=== PATIENT | male | born 1990 | race Caucasian/White ===

== ENCOUNTER 2019-01-27 04:39 | Emergency (ER) | payer BC ==
[2019-01-27] MEDS ORDERED: Al Hydrox/Mg Hydrox/Simet LIQ* 30 ML UDC PO ONE (05:05)
[2019-01-27] MEDS ORDERED: Lidocaine 2% VISCOUS* 15 ML UDC PO ONE (05:05)
--- NOTE | 2019-01-27 05:08 | ED ---
Complex/Multi-Sys Presentation - HPI Summary HPI Summary: Patient is a 28 y/o M presenting to ED with complaints of mid-lower sternal/ epigastric pain onsetting two days ago. He states that the pain onset two days ago in the evening after eating dinner. Patient states that the pain has progressively worsened. He characterizes the pain as sharp and notes that it has been constant but waxes and wanes in intensity. No radiation of pain is reported. He denies experiencing an abnormal taste in his mouth. No PMHx. FMHx of breast cancer in mother, no FMHx of cardiac disease. SOB, diaphoresis, and nausea are denied. On triage, pain is rated 6/10. Pain is noted to be aggravated by eating. Home medications and allergies are reviewed. - History Of Current Complaint Chief Complaint: EDChestPainROMI Time Seen by Provider: 01/27/19 04:57 Hx Obtained From: Patient Onset/Duration: Lasting Days, Still Present, Worse Since Timing: Constant, Days Severity Currently: Mild Severity Initially: Moderate Location: Pain At: - mid-lower sternal/epigastric Character: Sharp Aggravating Factor(s): eating food Alleviating Factor(s): nothing Associated Signs And Symptoms: Positive: Chest Pain - mid lower sternal/ epigastric, Other - no abnormal taste in mouth. Negative: SOB, Nausea, Diaphoresis - Allergies/Home Medications Allergies/Adverse Reactions: Allergies Allergy/AdvReac Type Severity Reaction Status Date / Time No Known Allergies Allergy Verified 01/27/19 04:46 PMH/Surg Hx/FS Hx/Imm Hx Sensory History: Denies: Hx Legally Blind, Hx Deafness Opthamlomology History: Denies: Hx Legally Blind EENT History: Denies: Hx Deafness Infectious Disease History: No Infectious Disease History: Denies: Traveled Outside the [place] in Last 30 Days - Family History Known Family History: Positive: Other - FMHx of breast cancer in mother Negative: Cardiac Disease Review of Systems Constitutional: Other - no abnormal taste in mouth Negative: Skin Diaphoresis Positive: Chest Pain - mid lower sternal/epigastric Negative: Shortness Of Breath Negative: Nausea All Other Systems Reviewed And Are Negative: Yes Physical Exam - Summary Physical Exam Summary: VITAL SIGNS: Reviewed. GENERAL: Patient is a well-developed and nourished male who is lying comfortable in the stretcher. Patient is not in any acute respiratory distress. HEAD AND FACE: No signs of trauma. No ecchymosis, hematomas or skull depressions. No sinus tenderness. EYES: PERRLA, EOMI x 2, No injected conjunctiva, no nystagmus. EARS: Hearing grossly intact. Ear canals and tympanic membranes are within normal limits. MOUTH: Oropharynx within normal limits. NECK: Supple, trachea is midline, no adenopathy, no JVD, no carotid bruit, no c- spine tenderness, neck with full ROM. CHEST: Symmetric, no tenderness at palpation LUNGS: Clear to auscultation bilaterally. No wheezing or crackles. CVS: Regular rate and rhythm, S1 and S2 present, no murmurs or gallops appreciated. ABDOMEN: Soft, non-tender. No signs of distention. No rebound no guarding, and no masses palpated. Bowel sounds are normal. EXTREMITIES: FROM in all major joints, no edema, no cyanosis or clubbing. NEURO: Alert and oriented x 3. No acute neurological deficits. Speech is normal and follows commands. SKIN: Dry and warm Triage Information Reviewed: Yes Vital Signs On Initial Exam: Initial Vitals Temp Pulse Resp BP Pulse Ox 97.7 F 74 20 148/95 98 01/27/19 04:41 01/27/19 04:41 01/27/19 04:41 01/27/19 04:41 01/27/19 04:41 Vital Signs Reviewed: Yes Diagnostics - Vital Signs Vital Signs Temp Pulse Resp BP Pulse Ox 01/27/19 04:41 97.7 F 74 20 148/95 98 - Laboratory Result Diagrams: 01/27/19 05:23 01/27/19 05:23 Lab Statement: Any lab studies that have been ordered have been reviewed, and results considered in the medical decision making process. - EKG 0515 Cardiac Rate: NL - rate of 66 BPM EKG Rhythm: Sinus Rhythm Summary of EKG Findings: EKG showed sinus rhythm with rate of 66 BPM, Normal axis. Normal interval. No ischemic changes. Re-Evaluation - Re-Evaluation First Eval Re-Evaluation Time: 06:05 Comment: Results of labs and tests were discussed with patient, he is agreeable with discharge and PCP and graphic coordinator follow up for stress test. Complex Multi-Symp Course/Dx Course Of Treatment: Patient is a 28 y/o M presenting to ED with complaints of mid-lower sternal/epigastric pain onsetting two days ago. He states that the pain onset two days ago in the evening after eating dinner. Patient states that the pain has progressively worsened. He characterizes the pain as sharp and notes that it has been constant but waxes and wanes in intensity. No radiation of pain is reported. He denies experiencing an abnormal taste in his mouth. No PMHx. FMHx of breast cancer in mother, no FMHx of cardiac disease. SOB, diaphoresis, and nausea are denied. Physical exam is unremarkable. EKG showed sinus rhythm with rate of 66 BPM, Normal axis. Normal interval. No ischemic changes. During ED course, patient received Klor Con Er Tab 40 meq PO, Lidocaine 15 ml PO and Maalox 30 ml PO. Labs showed WBC 11.2, MPV 6.7, absolute neuts 8.9, potassium 3.4, glucose 124, magnesium 1.8, amylase 21, lipase 21. Trop 0. Results of labs and tests were discussed with patient, he will be discharged to home to follow up with PCP and graphic coordinator for stress test. He is agreeable with this. - Diagnoses Provider Diagnoses: Atypical chest pain, GERD (gastroesophageal reflux disease) Discharge - Sign-Out/Discharge Documenting (check all that apply): Patient Departure - discharge Patient Received Moderate/Deep Sedation with Procedure: No - Discharge Plan Condition: Stable Disposition: HOME Prescriptions: Pantoprazole TAB * [Protonix TAB*] 40 mg PO DAILY #30 tab Patient Education Materials: Chest Pain (ED), Gastroesophageal Reflux Disease ( ED) Referrals: Care [facility] [Outside] - 3 Days Mack Doshi MD [Medical Doctor] - 3 Days Additional Instructions: RETURN TO ED FOR ANY NEW OR WORSENING SYMPTOMS. FOLLOW UP WITH YOUR PRIMARY CARE PHYSICIAN AND HANDS ASSEMBLER FOR OUT PATIENT STRESS TEST. - Attestation Statements Document Initiated by Scribe: Yes Documenting Scribe: FRANK MAHMOOD Provider For Whom [facility] is Documenting (Include Credential): DIANE FREDERICK MD Scribe Attestation: FRANK Pollock, scribed for DIANE FREDERICK MD on 01/27/19 at 0615. Status of Scribe Document: Ready
[2019-01-27 05:33] LABS: ABS Basophils 0.1 10^3/ul (0-0.2); ABS Eosinophils 0.1 10^3/ul (0-0.6); ABS Lymphocytes 1.4 10^3/ul (1.0-4.8); ABS Monocytes 0.7 10^3/ul (0-0.8); ABS Neutrophils 8.9 10^3/ul (1.5-7.7); ABS Nucleated RBC 0 10^3/ul; Eosinophil % 1.1 %; Hematocrit 45 % (36-46); Lymphocyte % 12.1 %; Mean Corpuscular HGB Conc 35 g/dL (31-36); Mean Corpuscular Hemoglobin 31 pg (27-31); Mean Corpuscular Volume 86 fL (80-94); Mean Platelet Volume 6.7 fL (7.4-10.4); Nucleated Red Blood Cells % 0; Platelet Count 260 10^3/uL (150-450); Red Blood Count 5.26 10^6 /uL (4.18-5.48); Red Cell Distribution Width 13 % (10.5-15); White Blood Count 11.2 10^3/uL (3.5-10.8)
[2019-01-27 06:01] LABS: Albumin 4.5 g/dL (3.2-5.2); BUN/Creatinine Ratio 12.3 (8-20); Calcium 9.8 mg/dL (8.6-10.3); EGFR African American 136.3 (>60); EGFR Non-African American 112.7 (>60); Globulin 2.2 g/dL (2-4); Magnesium 1.8 mg/dL (1.9-2.7); Potassium 3.4 mmol/L (3.5-5.0); Total Bilirubin 0.7 mg/dL (0.2-1.0); Total Protein 6.7 g/dL (6.4-8.9)
[2019-01-27] MEDS ORDERED: Potassium Chlor TAB* 20 MEQ TAB.ER PO ONE (06:01)
[2019-01-27 06:21] VITALS: BP 145/82
== END 2019-01-27 06:21 | disposition home or self-care (01) ==
LOC: ED 04:39
DX: R07.9 Chest pain, unspecified (principal); K21.9 Gastro-esophageal reflux disease without esophagitis
CPT/HCPCS: 36415; 80053; 82150; 83690; 83735; 84484; 85025; 85730; 93005; 99283; A9270-GY